=== PATIENT | female | born 1965 | race Caucasian/White ===

== ENCOUNTER 2022-08-07 19:38 | Inpatient (IN) | payer BC ==
[~2022-08-07] VITALS: Ht 165.1 cm; Wt 73.5 kg
[2022-08-07 20:06] LABS: BASOPHILS % (AUTO) 0.3 % (0.0-5.0); HEMATOCRIT 42.2 % (36-48); LYMPHOCYTES % (AUTO) 6.8 % (21.0-51.0); MEAN CORPUSCULAR HEMOGLOBIN 32.9 pg (27.0-33.0); MEAN CORPUSCULAR HGB CONC 35.3 g/dL (32.0-36.0); MEAN CORPUSCULAR VOLUME 93.2 fL (79-99); MONOCYTES % (AUTO) 3.8 % (3.0-13.0); NEUTROPHILS % (AUTO) 88.8 % (40.0-77.0); PLATELET COUNT (AUTO) 247 K/uL (130-400); RED BLOOD CELL COUNT(AUTO) 4.53 MIL/uL (4.00-5.50); RED CELL DISTRIBUTION WIDTH 13.3 % (11.0-15.5); WHITE BLOOD COUNT (AUTO) 10.3 K/uL (4.8-10.8)
[2022-08-07 20:23] LABS: CREATININE 0.9 mg/dL (0.5-1.5); POTASSIUM 3.4 mmol/L (3.5-5.1)
[2022-08-07 20:28] LABS: ALBUMIN 3.8 g/dL (3.5-5.0)
[2022-08-07] MEDS ORDERED: ONDANSETRON 4MG INJ IV ONE (20:30)
[2022-08-07] MEDS ORDERED: MORPHINE 4 MG SYG IVP ONE (20:30)
[2022-08-07] MEDS ORDERED: ONDANSETRON 4MG INJ ONE (20:40)
[2022-08-07] MEDS ORDERED: MORPHINE 4 MG SYG ONE (20:41)
[2022-08-07] MEDS ORDERED: IOHEXOL 350 MG/ML 100ML INFUS..BTL IV ONE (20:41)
[2022-08-07] MEDS ORDERED: ZOSYN 3.375GM +NS 50ML IV SCH (22:00)
[2022-08-07] MEDS ORDERED: 0.9%NACL 1000ML 1,000 ML IV SCH (22:00)
[2022-08-07] MEDS ORDERED: HYDROMORPHONE 1 MG INJ IVP ONE (22:30)
[2022-08-07] MEDS ORDERED: ACETAMINOPHEN 325 MG TAB PO PRN (22:30)
[2022-08-07] MEDS ORDERED: ONDANSETRON 4MG INJ IV PRN (22:30)
[2022-08-07] MEDS ORDERED: MORPHINE 2 MG SYG IV PRN (22:30)
[2022-08-07 22:42] LABS: APPEARANCE,URINE CLEAR (CLEAR); BILIRUBIN,URINE NEGATIVE (NEGATIVE); COLOR,URINE YELLOW (YELLOW); GLUCOSE, URINE (UA) NEGATIVE (NEGATIVE); KETONES,URINE 15 mg/dL (NEGATIVE); LEUKOCYTE ESTERASE ,URINE NEGATIVE (NEGATIVE); NITRATE,URINE POSITIVE (NEGATIVE); OCCULT BLOOD,URINE SMALL (NEGATIVE); PH,URINE 5.5 (5.0-8.0); PROTEIN,URINE NEGATIVE (NEGATIVE); UROBILINOGEN,URINE 0.2 mg/dL (0.2-1.0)
[2022-08-07 22:49] LABS: BACTERIA,URINE Few /HPF (None Seen); MUCUS,URINE Rare LPF (None Seen); SQUAMOUS EPITHELIAL CELL,UR Rare /HPF (0-2)
[2022-08-07] MEDS: LACTATED RINGERS 1000ML 1,000 ML IV SCH (22:56)
[2022-08-07] MEDS ORDERED: POTASSIUM CHLORIDE 20MEQ/100ML 100 ML IV PRN (23:30)
[2022-08-07] MEDS ORDERED: LIDOCAINE HCL-MPF 1% 2ML VIAL IV PRN (23:30)
[2022-08-07] MEDS ORDERED: NICOTINE 21 MG/ 24 HR PATCH TD SCH (23:30)
[2022-08-08] MEDS ORDERED: HYDROMORPHONE 0.5 MG SYG (0.5MG/0.5ML) ONE (01:20)
[2022-08-08] MEDS ORDERED: HYDROMORPHONE 0.5 MG SYG (0.5MG/0.5ML) IVP ONE (01:30)
[2022-08-08 03:30] VITALS: BP 154/80
[2022-08-08] MEDS: MORPHINE 4 MG SYG IV PRN ×4 (04:14→17:57)
[2022-08-08] MEDS: ZOSYN 3.375GM+NS 50ML 50 ML IV SCH ×3 (04:20→21:51)
[2022-08-08 06:35] LABS: BASOPHILS % (AUTO) 0.3 % (0.0-5.0); EOSINOPHILS % (AUTO) 0.4 % (0.0-8.0); HEMATOCRIT 40.1 % (36-48); MEAN CORPUSCULAR HEMOGLOBIN 33.2 pg (27.0-33.0); MEAN CORPUSCULAR HGB CONC 34.7 g/dL (32.0-36.0); MEAN CORPUSCULAR VOLUME 95.7 fL (79-99); MONOCYTES % (AUTO) 4.2 % (3.0-13.0); NEUTROPHILS % (AUTO) 83.6 % (40.0-77.0); PLATELET COUNT (AUTO) 239 K/uL (130-400); RED BLOOD CELL COUNT(AUTO) 4.19 MIL/uL (4.00-5.50); RED CELL DISTRIBUTION WIDTH 13.2 % (11.0-15.5); WHITE BLOOD COUNT (AUTO) 11.1 K/uL (4.8-10.8)
[2022-08-08 06:48] LABS: CREATININE 0.9 mg/dL (0.5-1.5); MAGNESIUM 1.8 mg/dL (1.80-2.40); PHOSPHORUS 2.9 mg/dL (2.5-4.9); POTASSIUM 4.1 mmol/L (3.5-5.1)
[2022-08-08 08:00] VITALS: BP 161/88
[2022-08-08] MEDS: FAMOTIDINE 20MG VIAL IV SCH ×2 (08:24→21:51)
[2022-08-08] MEDS: NICOTINE 21 MG/ 24 HR PATCH TD SCH (09:00)
[2022-08-08] MEDS ORDERED: ALPRAZOLAM 0.25 MG TABLET PO PRN (09:30)
[2022-08-08 11:57] VITALS: BP 154/79
[2022-08-08] MEDS: LACTATED RINGERS 1000ML 1,000 ML IV SCH (13:08)
[2022-08-08 16:00] VITALS: BP 149/89
[2022-08-08] MEDS: DIAZEPAM 5 MG/ML 2 ML SYG IV PRN ×2 (17:22→21:52)
[2022-08-08 20:00] VITALS: BP 154/94
[2022-08-09] VITALS: BP 149/73
[2022-08-09] MEDS: MORPHINE 4 MG SYG IV PRN ×2 (00:22→08:19)
[2022-08-09] MEDS: LACTATED RINGERS 1000ML 1,000 ML IV SCH (00:24)
[2022-08-09 04:00] VITALS: BP 151/93
[2022-08-09] MEDS: ZOSYN 3.375GM+NS 50ML 50 ML IV SCH ×3 (05:04→21:14)
[2022-08-09 05:14] LABS: HEMATOCRIT 34.8 % (36-48); MEAN CORPUSCULAR HEMOGLOBIN 32.9 pg (27.0-33.0); MEAN CORPUSCULAR HGB CONC 34.8 g/dL (32.0-36.0); MEAN CORPUSCULAR VOLUME 94.6 fL (79-99); RED BLOOD CELL COUNT(AUTO) 3.68 MIL/uL (4.00-5.50); WHITE BLOOD COUNT (AUTO) 10.2 K/uL (4.8-10.8)
[2022-08-09 05:29] LABS: CREATININE 0.7 mg/dL (0.5-1.5); POTASSIUM 3.3 mmol/L (3.5-5.1)
[2022-08-09 08:00] VITALS: BP 150/93
[2022-08-09] MEDS: FAMOTIDINE 20MG VIAL IV SCH ×2 (08:19→21:14)
[2022-08-09] MEDS: NICOTINE 21 MG/ 24 HR PATCH TD SCH (08:25)
[2022-08-09] MEDS: DIAZEPAM 5 MG/ML 2 ML SYG IV PRN (10:15)
[2022-08-09] MEDS ORDERED: KETOROLAC 30MG VIAL (30MG/ML) IM PRN (11:30)
[2022-08-09] MEDS: HYDROCODONE/ACETAMINOPHEN 5/325 MG TAB PO PRN (13:19)
[2022-08-09] MEDS ORDERED: DIAZEPAM 5 MG/ML 2 ML SYG IV PRN (15:30)
[2022-08-09 16:00] VITALS: BP 140/84
[2022-08-09] MEDS: KCL 20 MEQ ERTAB PO PRN (17:11)
[2022-08-09 19:58] LABS: INR 0.95 (0.85-1.15); PROTHROMBIN TIME 10.4 SEC (9.6-11.6)
[2022-08-09 20:00] VITALS: BP 160/90
[2022-08-09] MEDS: DIAZEPAM 5 MG/ML 2 ML SYG IV SCH (21:14)
[2022-08-10] VITALS (7 sets, daily range): BP systolic 143–168; BP diastolic 87–101
[2022-08-10] MEDS: MORPHINE 4 MG SYG IV PRN (01:07)
[2022-08-10] MEDS: DIAZEPAM 5 MG/ML 2 ML SYG IV PRN (02:38)
[2022-08-10] MEDS: ZOSYN 3.375GM+NS 50ML 50 ML IV SCH ×3 (04:15→22:20)
[2022-08-10 06:04] LABS: BASOPHILS % (AUTO) 0.7 % (0.0-5.0); EOSINOPHILS % (AUTO) 1.3 % (0.0-8.0); HEMATOCRIT 34.7 % (36-48); LYMPHOCYTES % (AUTO) 14.8 % (21.0-51.0); MEAN CORPUSCULAR HEMOGLOBIN 33.2 pg (27.0-33.0); MEAN CORPUSCULAR HGB CONC 35.2 g/dL (32.0-36.0); MEAN CORPUSCULAR VOLUME 94.3 fL (79-99); MONOCYTES % (AUTO) 6.8 % (3.0-13.0); PLATELET COUNT (AUTO) 213 K/uL (130-400); RED BLOOD CELL COUNT(AUTO) 3.68 MIL/uL (4.00-5.50); RED CELL DISTRIBUTION WIDTH 12.8 % (11.0-15.5); WHITE BLOOD COUNT (AUTO) 7.2 K/uL (4.8-10.8)
[2022-08-10 06:17] LABS: CREATININE 0.6 mg/dL (0.5-1.5); POTASSIUM 3.5 mmol/L (3.5-5.1)
[2022-08-10 06:18] LABS: MAGNESIUM 1.6 mg/dL (1.80-2.40)
[2022-08-10] MEDS: NICOTINE 21 MG/ 24 HR PATCH TD SCH (09:00)
[2022-08-10] MEDS ORDERED: MAGNESIUM 2GM PREMIX 50ML 50 ML IV PRN ×3 (09:00→23:30)
[2022-08-10] MEDS ORDERED: DIAZEPAM 5 MG/ML 2 ML SYG IV SCH ×2 (09:30→10:00)
[2022-08-10] MEDS: FAMOTIDINE 20MG VIAL IV SCH ×2 (09:55→22:13)
[2022-08-10] MEDS ORDERED: IOHEXOL 350 MG/ML 100ML INFUS..BTL IV ONE (12:19)
[2022-08-10] MEDS: DIAZEPAM 5 MG/ML 2 ML SYG IV SCH ×2 (13:03→22:19)
[2022-08-10] MEDS: POTASSIUM CHLORIDE 10% ELIXIR 20 MEQ/15 ML UDCUP PO PRN ×3 (15:02→22:23)
[2022-08-10] MEDS: KETOROLAC 30MG VIAL (30MG/ML) IVP PRN (15:03)
[2022-08-10] MEDS: HYDROCODONE/ACETAMINOPHEN 5/325 MG TAB PO PRN (20:48)
[2022-08-11] MEDS: KETOROLAC 30MG VIAL (30MG/ML) IVP PRN ×2 (02:27→17:47)
[2022-08-11 05:01] VITALS: BP 145/83
[2022-08-11] MEDS: ZOSYN 3.375GM+NS 50ML 50 ML IV SCH ×3 (05:49→22:53)
[2022-08-11] MEDS: DIAZEPAM 5 MG/ML 2 ML SYG IV SCH ×3 (06:49→22:53)
[2022-08-11 08:00] VITALS: BP 159/100
[2022-08-11] MEDS: NICOTINE 21 MG/ 24 HR PATCH TD SCH (09:00)
[2022-08-11] MEDS: FAMOTIDINE 20MG VIAL IV SCH ×2 (09:50→19:59)
[2022-08-11] MEDS: HYDROCODONE/ACETAMINOPHEN 5/325 MG TAB PO PRN ×2 (10:05→19:59)
[2022-08-11 12:00] VITALS: BP 130/85
[2022-08-11 16:00] VITALS: BP 162/80
[2022-08-11] MEDS: FLUCONAZOLE 200 MG/NS 100 ML 100 ML IV SCH (18:10)
[2022-08-11 20:00] VITALS: BP 156/96
[2022-08-12] VITALS (13 sets, daily range): BP systolic 134–178; BP diastolic 47–99
[2022-08-12] MEDS: KETOROLAC 30MG VIAL (30MG/ML) IVP PRN ×3 (02:20→17:08)
[2022-08-12] MEDS: ZOSYN 3.375GM+NS 50ML 50 ML IV SCH ×3 (06:06→20:08)
[2022-08-12] MEDS: DIAZEPAM 5 MG/ML 2 ML SYG IV SCH ×3 (06:07→22:16)
[2022-08-12 06:42] LABS: BASOPHILS % (AUTO) 0.7 % (0.0-5.0); EOSINOPHILS % (AUTO) 2.6 % (0.0-8.0); LYMPHOCYTES % (AUTO) 22.4 % (21.0-51.0); MEAN CORPUSCULAR HEMOGLOBIN 32.9 pg (27.0-33.0); MEAN CORPUSCULAR HGB CONC 35.1 g/dL (32.0-36.0); MEAN CORPUSCULAR VOLUME 93.6 fL (79-99); MONOCYTES % (AUTO) 11.5 % (3.0-13.0); NEUTROPHILS % (AUTO) 61.9 % (40.0-77.0); PLATELET COUNT (AUTO) 238 K/uL (130-400); RED BLOOD CELL COUNT(AUTO) 3.74 MIL/uL (4.00-5.50); RED CELL DISTRIBUTION WIDTH 13.1 % (11.0-15.5); WHITE BLOOD COUNT (AUTO) 5.4 K/uL (4.8-10.8)
[2022-08-12 06:50] LABS: INR 0.94 (0.85-1.15); PROTHROMBIN TIME 10.3 SEC (9.6-11.6)
[2022-08-12 06:52] LABS: ALBUMIN 2.7 g/dL (3.5-5.0); CREATININE 0.7 mg/dL (0.5-1.5); CRP QUANTITATIVE 117.2 mg/L (0.00-9.0); PARTIAL THROMBOPLASTIN TIME 24.3 SEC (26.3-35.5); POTASSIUM 3.5 mmol/L (3.5-5.1); TOTAL PROTEIN, SERUM 6.4 g/dL (6.0-8.3)
[2022-08-12] MEDS: FAMOTIDINE 20MG VIAL IV SCH ×2 (09:00→20:08)
[2022-08-12] MEDS: NICOTINE 21 MG/ 24 HR PATCH TD SCH (09:00)
[2022-08-12] MEDS ORDERED: ALPRAZOLAM 0.5 MG TABLET PO SCH (11:30)
[2022-08-12] MEDS ORDERED: FENTANYL CITRATE PF 50 MCG/1 ML 2ML VIAL ONE (13:59)
[2022-08-12] MEDS ORDERED: MIDAZOLAM HCL 1 MG/ML 2ML VIAL ONE (13:59)
[2022-08-12] MEDS: FLUCONAZOLE 200 MG/NS 100 ML 100 ML IV SCH (18:08)
[2022-08-12] MEDS: DIAZEPAM 5 MG/ML 2 ML SYG IV PRN (18:29)
[2022-08-12] MEDS: POTASSIUM CHLORIDE 10% ELIXIR 20 MEQ/15 ML UDCUP PO PRN ×2 (20:08→22:14)
[2022-08-12] MEDS: HYDROCODONE/ACETAMINOPHEN 5/325 MG TAB PO PRN (21:37)
[2022-08-13] MEDS: KETOROLAC 30MG VIAL (30MG/ML) IVP PRN (02:51)
[2022-08-13 03:00] VITALS: BP 151/91
[2022-08-13] MEDS: ZOSYN 3.375GM+NS 50ML 50 ML IV SCH ×3 (04:43→21:07)
[2022-08-13 05:02] LABS: BASOPHILS % (AUTO) 0.9 % (0.0-5.0); EOSINOPHILS % (AUTO) 2.7 % (0.0-8.0); HEMATOCRIT 37.3 % (36-48); LYMPHOCYTES % (AUTO) 27.3 % (21.0-51.0); MEAN CORPUSCULAR HEMOGLOBIN 32.5 pg (27.0-33.0); MEAN CORPUSCULAR HGB CONC 34.6 g/dL (32.0-36.0); MONOCYTES % (AUTO) 7.8 % (3.0-13.0); NEUTROPHILS % (AUTO) 60.1 % (40.0-77.0); PLATELET COUNT (AUTO) 250 K/uL (130-400); RED BLOOD CELL COUNT(AUTO) 3.97 MIL/uL (4.00-5.50); RED CELL DISTRIBUTION WIDTH 13.1 % (11.0-15.5); WHITE BLOOD COUNT (AUTO) 6.6 K/uL (4.8-10.8)
[2022-08-13 05:23] LABS: ALBUMIN 2.8 g/dL (3.5-5.0); CREATININE 0.7 mg/dL (0.5-1.5); MAGNESIUM 1.9 mg/dL (1.80-2.40); POTASSIUM 4.3 mmol/L (3.5-5.1); TOTAL PROTEIN, SERUM 6.8 g/dL (6.0-8.3)
[2022-08-13] MEDS: DIAZEPAM 5 MG/ML 2 ML SYG IV SCH ×3 (06:08→21:08)
[2022-08-13 08:15] VITALS: BP 166/133
[2022-08-13] MEDS: NICOTINE 21 MG/ 24 HR PATCH TD SCH (09:00)
[2022-08-13] MEDS: FAMOTIDINE 20MG VIAL IV SCH ×2 (09:18→21:07)
[2022-08-13] MEDS: HYDROCODONE/ACETAMINOPHEN 5/325 MG TAB PO PRN ×2 (09:33→21:27)
[2022-08-13] MEDS: DIAZEPAM 5 MG/ML 2 ML SYG IV PRN (11:48)
[2022-08-13 13:15] VITALS: BP 160/91
[2022-08-13] MEDS: FLUCONAZOLE 200 MG/NS 100 ML 100 ML IV SCH (17:02)
[2022-08-13 17:08] VITALS: BP 165/97
[2022-08-13 20:00] VITALS: BP 171/107
[2022-08-13] MEDS ORDERED: ALTEPLASE 2MG VIAL 2 MG/VIAL VIAL IVCATH SCH (20:00)
[2022-08-14] VITALS: BP 124/76
[2022-08-14 04:00] VITALS: BP 180/97
[2022-08-14] MEDS: ZOSYN 3.375GM+NS 50ML 50 ML IV SCH ×3 (05:00→21:52)
[2022-08-14 05:24] LABS: BASOPHILS % (AUTO) 0.8 % (0.0-5.0); LYMPHOCYTES % (AUTO) 25.8 % (21.0-51.0); MEAN CORPUSCULAR HEMOGLOBIN 32.6 pg (27.0-33.0); MEAN CORPUSCULAR HGB CONC 34.7 g/dL (32.0-36.0); MONOCYTES % (AUTO) 7.3 % (3.0-13.0); NEUTROPHILS % (AUTO) 61.4 % (40.0-77.0); PLATELET COUNT (AUTO) 259 K/uL (130-400); RED BLOOD CELL COUNT(AUTO) 3.83 MIL/uL (4.00-5.50); RED CELL DISTRIBUTION WIDTH 13.2 % (11.0-15.5)
[2022-08-14 05:47] LABS: ALBUMIN 2.7 g/dL (3.5-5.0); CREATININE 0.8 mg/dL (0.5-1.5); POTASSIUM 3.7 mmol/L (3.5-5.1); TOTAL PROTEIN, SERUM 6.7 g/dL (6.0-8.3)
[2022-08-14] MEDS: DIAZEPAM 5 MG/ML 2 ML SYG IV SCH ×3 (06:28→21:54)
[2022-08-14 08:00] VITALS: BP 182/93
[2022-08-14] MEDS: FAMOTIDINE 20MG VIAL IV SCH ×2 (08:55→21:52)
[2022-08-14] MEDS: NICOTINE 21 MG/ 24 HR PATCH TD SCH (08:55)
[2022-08-14] MEDS: POTASSIUM CHLORIDE 10% ELIXIR 20 MEQ/15 ML UDCUP PO PRN ×2 (09:12→15:34)
[2022-08-14 12:00] VITALS: BP 161/99
[2022-08-14] MEDS: HYDROCODONE/ACETAMINOPHEN 5/325 MG TAB PO PRN (12:16)
[2022-08-14] MEDS ORDERED: ALTEPLASE 2MG VIAL 2 MG/VIAL VIAL IVCATH SCH (14:00)
[2022-08-14 16:00] VITALS: BP 156/99
[2022-08-14] MEDS: FLUCONAZOLE 200 MG/NS 100 ML 100 ML IV SCH (16:53)
[2022-08-14 20:45] VITALS: BP 148/90
[2022-08-14] MEDS: KETOROLAC 30MG VIAL (30MG/ML) IVP PRN (21:53)
[2022-08-15] VITALS (7 sets, daily range): BP systolic 144–171; BP diastolic 78–98
[2022-08-15] MEDS: ZOSYN 3.375GM+NS 50ML 50 ML IV SCH (05:14)
[2022-08-15 06:54] LABS: EOSINOPHILS % (AUTO) 2.2 % (0.0-8.0); HEMATOCRIT 36.2 % (36-48); LYMPHOCYTES % (AUTO) 29.3 % (21.0-51.0); MEAN CORPUSCULAR HEMOGLOBIN 32.4 pg (27.0-33.0); MEAN CORPUSCULAR HGB CONC 34.3 g/dL (32.0-36.0); MEAN CORPUSCULAR VOLUME 94.5 fL (79-99); MONOCYTES % (AUTO) 9.4 % (3.0-13.0); NEUTROPHILS % (AUTO) 57.1 % (40.0-77.0); PLATELET COUNT (AUTO) 295 K/uL (130-400); RED BLOOD CELL COUNT(AUTO) 3.83 MIL/uL (4.00-5.50); RED CELL DISTRIBUTION WIDTH 13.3 % (11.0-15.5); WHITE BLOOD COUNT (AUTO) 5.1 K/uL (4.8-10.8)
[2022-08-15 07:07] LABS: CREATININE 0.7 mg/dL (0.5-1.5); POTASSIUM 3.9 mmol/L (3.5-5.1)
[2022-08-15] MEDS: FAMOTIDINE 20MG VIAL IV SCH ×2 (08:49→20:24)
[2022-08-15] MEDS: NICOTINE 21 MG/ 24 HR PATCH TD SCH (08:50)
[2022-08-15] MEDS: ALPRAZOLAM 0.5 MG TABLET PO PRN ×2 (09:03→20:24)
[2022-08-15] MEDS: CEFTAZIDIME PENTAHYDRATE 1 GM/VIAL IVP SCH ×2 (12:26→20:24)
[2022-08-15] MEDS: HYDROCODONE/ACETAMINOPHEN 5/325 MG TAB PO PRN (15:34)
[2022-08-15] MEDS: FLUCONAZOLE 200 MG/NS 100 ML 100 ML IV SCH (17:26)
[2022-08-16 03:59] VITALS: BP 143/76
[2022-08-16] MEDS: CEFTAZIDIME PENTAHYDRATE 1 GM/VIAL IVP SCH ×3 (04:31→21:12)
[2022-08-16 05:25] LABS: EOSINOPHILS % (AUTO) 2.5 % (0.0-8.0); LYMPHOCYTES % (AUTO) 29.6 % (21.0-51.0); MEAN CORPUSCULAR HGB CONC 33.8 g/dL (32.0-36.0); MEAN CORPUSCULAR VOLUME 94.6 fL (79-99); MONOCYTES % (AUTO) 7.1 % (3.0-13.0); NEUTROPHILS % (AUTO) 59.2 % (40.0-77.0); PLATELET COUNT (AUTO) 299 K/uL (130-400); RED BLOOD CELL COUNT(AUTO) 3.91 MIL/uL (4.00-5.50); RED CELL DISTRIBUTION WIDTH 13.4 % (11.0-15.5); WHITE BLOOD COUNT (AUTO) 4.8 K/uL (4.8-10.8)
[2022-08-16 05:43] LABS: CREATININE 0.7 mg/dL (0.5-1.5); CRP QUANTITATIVE 67.1 mg/L (0.00-9.0); POTASSIUM 3.8 mmol/L (3.5-5.1)
[2022-08-16 06:56] LABS: ERYTHROCYTE SEDIMENTATION RATE 54 MM/HR (0-30)
[2022-08-16 07:09] VITALS: BP 141/79
[2022-08-16] MEDS: NICOTINE 21 MG/ 24 HR PATCH TD SCH (09:00)
[2022-08-16] MEDS: HYDROCODONE/ACETAMINOPHEN 5/325 MG TAB PO PRN ×2 (09:16→13:00)
[2022-08-16] MEDS: FAMOTIDINE 20MG VIAL IV SCH ×2 (09:16→21:12)
[2022-08-16 11:25] VITALS: BP 130/80
[2022-08-16 15:09] VITALS: BP 127/76
[2022-08-16] MEDS: FLUCONAZOLE 200 MG/NS 100 ML 100 ML IV SCH (17:22)
[2022-08-16 19:42] VITALS: BP 160/92
[2022-08-16] MEDS: ALPRAZOLAM 0.5 MG TABLET PO PRN (21:12)
[2022-08-16 23:04] VITALS: BP 153/91
[2022-08-17 03:00] VITALS: BP 141/79
[2022-08-17] MEDS: CEFTAZIDIME PENTAHYDRATE 1 GM/VIAL IVP SCH ×3 (05:09→21:41)
[2022-08-17 07:09] VITALS: BP 146/83
[2022-08-17] MEDS: HYDROCODONE/ACETAMINOPHEN 5/325 MG TAB PO PRN ×2 (08:35→16:31)
[2022-08-17] MEDS: FAMOTIDINE 20MG VIAL IV SCH ×2 (08:46→21:41)
[2022-08-17] MEDS: NICOTINE 21 MG/ 24 HR PATCH TD SCH (09:00)
[2022-08-17 11:00] VITALS: BP 131/77
[2022-08-17 16:13] VITALS: BP 125/78
[2022-08-17] MEDS: FLUCONAZOLE 200 MG/NS 100 ML 100 ML IV SCH (18:04)
[2022-08-17 20:00] VITALS: BP 146/84
[2022-08-17] MEDS: ALPRAZOLAM 0.5 MG TABLET PO PRN (21:41)
[2022-08-18] VITALS: BP 154/86
[2022-08-18 04:00] VITALS: BP 149/85
[2022-08-18] MEDS: CEFTAZIDIME PENTAHYDRATE 1 GM/VIAL IVP SCH ×3 (04:41→20:39)
[2022-08-18] MEDS: FAMOTIDINE 20MG VIAL IV SCH ×2 (07:42→20:39)
[2022-08-18] MEDS: HYDROCODONE/ACETAMINOPHEN 5/325 MG TAB PO PRN ×2 (07:43→14:22)
[2022-08-18 08:00] VITALS: BP 139/90
[2022-08-18] MEDS ORDERED: IOHEXOL 350 MG/ML 100ML INFUS..BTL IV ONE (08:20)
[2022-08-18] MEDS: NICOTINE 21 MG/ 24 HR PATCH TD SCH (09:00)
[2022-08-18 12:00] VITALS: BP 137/87
[2022-08-18] MEDS: ALPRAZOLAM 0.5 MG TABLET PO PRN ×2 (12:21→20:47)
[2022-08-18 16:00] VITALS: BP 130/75
[2022-08-18] MEDS ORDERED: ALTEPLASE 2MG VIAL 2 MG/VIAL VIAL IVCATH SCH (17:00)
[2022-08-18] MEDS: FLUCONAZOLE 200 MG/NS 100 ML 100 ML IV SCH (18:06)
[2022-08-18 19:56] VITALS: BP 145/85
[2022-08-19] VITALS: BP 129/74
[2022-08-19 04:00] VITALS: BP 128/79
[2022-08-19] MEDS: CEFTAZIDIME PENTAHYDRATE 1 GM/VIAL IVP SCH ×3 (04:06→19:51)
[2022-08-19] MEDS: HYDROCODONE/ACETAMINOPHEN 5/325 MG TAB PO PRN ×2 (05:37→12:51)
[2022-08-19 08:00] VITALS: BP 115/77
[2022-08-19 08:37] LABS: HEMATOCRIT 36.7 % (36-48); MEAN CORPUSCULAR HEMOGLOBIN 32.2 pg (27.0-33.0); MEAN CORPUSCULAR HGB CONC 34.1 g/dL (32.0-36.0); MEAN CORPUSCULAR VOLUME 94.6 fL (79-99); RED BLOOD CELL COUNT(AUTO) 3.88 MIL/uL (4.00-5.50); RED CELL DISTRIBUTION WIDTH 13.6 % (11.0-15.5); WHITE BLOOD COUNT (AUTO) 6.8 K/uL (4.8-10.8)
[2022-08-19] MEDS: FAMOTIDINE 20MG VIAL IV SCH ×2 (08:53→19:48)
[2022-08-19] MEDS: NICOTINE 21 MG/ 24 HR PATCH TD SCH (09:00)
[2022-08-19 09:01] LABS: CREATININE 0.7 mg/dL (0.5-1.5); POTASSIUM 4.5 mmol/L (3.5-5.1)
[2022-08-19] MEDS: ALPRAZOLAM 0.5 MG TABLET PO PRN ×2 (09:13→17:51)
[2022-08-19 12:00] VITALS: BP 155/93
[2022-08-19 16:00] VITALS: BP 131/67
[2022-08-19] MEDS: FLUCONAZOLE 200 MG/NS 100 ML 100 ML IV SCH (18:09)
[2022-08-19 20:00] VITALS: BP 151/84
[2022-08-20] VITALS (9 sets, daily range): BP systolic 121–152; BP diastolic 70–87
[2022-08-20] MEDS: HYDROCODONE/ACETAMINOPHEN 5/325 MG TAB PO PRN ×4 (02:44→23:26)
[2022-08-20] MEDS: CEFTAZIDIME PENTAHYDRATE 1 GM/VIAL IVP SCH ×3 (04:03→19:50)
[2022-08-20] MEDS: NICOTINE 21 MG/ 24 HR PATCH TD SCH (07:28)
[2022-08-20] MEDS: FAMOTIDINE 20MG VIAL IV SCH ×2 (08:27→19:50)
[2022-08-20] MEDS: FLUCONAZOLE 200 MG/NS 100 ML 100 ML IV SCH (16:40)
[2022-08-20] MEDS: ALPRAZOLAM 0.5 MG TABLET PO PRN (19:50)
[2022-08-21 03:56] VITALS: BP 99/56
[2022-08-21] MEDS: CEFTAZIDIME PENTAHYDRATE 1 GM/VIAL IVP SCH ×3 (04:20→19:56)
[2022-08-21 04:42] LABS: BASOPHILS % (AUTO) 1.8 % (0.0-5.0); EOSINOPHILS % (AUTO) 2.6 % (0.0-8.0); HEMATOCRIT 32.6 % (36-48); LYMPHOCYTES % (AUTO) 29.2 % (21.0-51.0); MEAN CORPUSCULAR HEMOGLOBIN 31.7 pg (27.0-33.0); MEAN CORPUSCULAR HGB CONC 33.4 g/dL (32.0-36.0); MEAN CORPUSCULAR VOLUME 94.8 fL (79-99); MONOCYTES % (AUTO) 9.1 % (3.0-13.0); NEUTROPHILS % (AUTO) 56.9 % (40.0-77.0); PLATELET COUNT (AUTO) 354 K/uL (130-400); RED BLOOD CELL COUNT(AUTO) 3.44 MIL/uL (4.00-5.50); RED CELL DISTRIBUTION WIDTH 13.7 % (11.0-15.5); WHITE BLOOD COUNT (AUTO) 5.7 K/uL (4.8-10.8)
[2022-08-21 04:53] LABS: CREATININE 0.8 mg/dL (0.5-1.5); MAGNESIUM 1.8 mg/dL (1.80-2.40); POTASSIUM 3.8 mmol/L (3.5-5.1)
[2022-08-21 07:11] VITALS: BP 138/76
[2022-08-21] MEDS: NICOTINE 21 MG/ 24 HR PATCH TD SCH (09:00)
[2022-08-21] MEDS: FAMOTIDINE 20MG VIAL IV SCH ×2 (09:01→19:56)
[2022-08-21] MEDS: HYDROCODONE/ACETAMINOPHEN 5/325 MG TAB PO PRN ×2 (09:01→20:07)
[2022-08-21 12:12] VITALS: BP 129/78
[2022-08-21] MEDS: ALPRAZOLAM 0.5 MG TABLET PO PRN (15:28)
[2022-08-21 16:10] VITALS: BP 151/85
[2022-08-21] MEDS: FLUCONAZOLE 200 MG/NS 100 ML 100 ML IV SCH (19:56)
[2022-08-21 20:02] VITALS: BP 114/64
== END 2022-08-21 20:44 | DRG 871 ==
LOC: EDH 19:38 → EDHIP 22:04 → 3AH 08-08 03:10
PROVIDERS: ADMIT Hospitalist; ATTEND Hospitalist
PROC: 0W9F30Z Drainage of Abdominal Wall with Drainage Device, Percutaneous Approach (ICD-10-PCS; principal; 2022-08-12)
DX: A41.9 Sepsis, unspecified organism (principal); E43 Unspecified severe protein-calorie malnutrition; K65.8 Other peritonitis; N39.0 Urinary tract infection, site not specified; K57.20 Diverticulitis of large intestine with perforation and abscess without bleeding; Z20.822 Contact with and (suspected) exposure to COVID-19; E87.6 Hypokalemia; E66.9 Obesity, unspecified; R53.81 Other malaise; E11.9 Type 2 diabetes mellitus without complications; F17.200 Nicotine dependence, unspecified, uncomplicated; I10 Essential (primary) hypertension; Z86.32 Personal history of gestational diabetes; Z90.710 Acquired absence of both cervix and uterus; Z68.27 Body mass index [BMI] 27.0-27.9, adult
CPT/HCPCS: 36415; 74177; 75989; 77012; 80048; 80053; 81001; 83605; 83690; 83735; 84100; 84145; 85025; 85027; 85610; 85651; 85730; 86140; 86850; 86900; 86901; 87040; 87071; 87077; 87088; 87186; 87205; 87635; 93005; 99152; 99153; G0378; J0713; J1170; J1450; J1885; J2250; J2270; J2405; J2543; J2997; J3010; J3360; J3475; J3480; J3490; J7030; J7120; Q9967

== ENCOUNTER 2022-09-05 09:37 | Day surgery (SDC) | payer BC ==
[2022-09-04 15:39] LABS: CREATININE 0.8 mg/dL (0.5-1.5); INR 0.97 (0.85-1.15); POTASSIUM 3.6 mmol/L (3.5-5.1); PROTHROMBIN TIME 10.6 SEC (9.6-11.6)
[2022-09-04 15:40] LABS: PARTIAL THROMBOPLASTIN TIME 25.9 SEC (26.3-35.5)
[2022-09-04 15:54] VITALS: BP 149/79
[~2022-09-05] VITALS: Ht 167.6 cm; Wt 72.0 kg
[2022-09-05 10:30] VITALS: BP 121/75
[2022-09-05] MEDS ORDERED: ALTEPLASE 2MG VIAL 2 MG/VIAL VIAL IVPB SCH (13:00)
[2022-09-05] MEDS ORDERED: FENTANYL CITRATE PF 50 MCG/1 ML 2ML VIAL ONE (14:55)
[2022-09-05] MEDS ORDERED: MIDAZOLAM HCL 1 MG/ML 2ML VIAL ONE (14:55)
[2022-09-05] MEDS ORDERED: IODIXANOL 320 MG/ML 100 ML VIAL ONE (15:02)
[2022-09-05] MEDS ORDERED: LIDOCAINE HCL-MPF 0.5% 50ML VIAL IJ ONE (15:02)
[2022-09-05] MEDS ORDERED: HYDR-4060 PO (16:12)
[2022-09-05] MEDS ORDERED: FAMO20TA8 PO (16:12)
[2022-09-05] MEDS ORDERED: FLUC200P10 IV (16:12)
[2022-09-05] MEDS ORDERED: DOCU-116 PO (16:12)
[2022-09-05] MEDS ORDERED: ALPR-410 PO (16:12)
== END 2022-09-05 16:30 | disposition home or self-care (01) ==
LOC: DAH 09:37
PROVIDERS: ATTEND Student in an Organized Health Care Education/Training Program
DX: K57.20 Diverticulitis of large intestine with perforation and abscess without bleeding (principal); Z79.01 Long term (current) use of anticoagulants; Z79.899 Other long term (current) drug therapy
CPT/HCPCS: 80048; 85610; 85730; 36415; 76080; 49424; A4663; J1644; J3490; Q9967; A4222; A4216; A4606; A4223 ×2; J2250; J2997; J3010